=== PATIENT | male | born 1940 | race Caucasian/White ===

== ENCOUNTER 2023-04-18 06:23 | Day surgery (SDC) | payer MEDICARE, BC ==
[2023-04-18] VITALS (7 sets, daily range): BP systolic 102–158; BP diastolic 55–87; PULSE 39–90; RESP 14–16; TEMP 97.5; O2SAT 96–98
[~2023-04-18] VITALS: Ht 167.6 cm; Wt 87.2 kg
[~2023-04-18 06:23] MED LIST: ATOR40TA PO; CLOP75TA34 PO
[2023-04-18] MEDS ORDERED: TAMSULOSIN PO (06:46)
[2023-04-18] MEDS ORDERED: RIVA20TA PO (06:46)
[2023-04-18] MEDS ORDERED: EVOL140P3 SQ (06:46)
[2023-04-18] MEDS ORDERED: PANT40TA54 PO (06:48)
[2023-04-18] MEDS ORDERED: PRAV40TA3 PO (06:48)
[2023-04-18] MEDS ORDERED: AMIO200T27 PO (06:48)
[2023-04-18 07:25] LABS: APTT 27 SECONDS (22-32); PROTHROMBIN TIME 10.9 SECONDS (9.0-12.0)
[2023-04-18 07:34] LABS: BASOPHILS # (AUTO) 0.1 X10'3 (0-0.2); BASOPHILS % (AUTO) 0.8 % (0-1); EOSINOPHILS # (AUTO) 0.2 X10'3 (0-0.9); EOSINOPHILS % (AUTO) 3.2 % (0-6); HEMATOCRIT 41.6 % (42.0-52.0); HEMOGLOBIN 14.2 g/dl (14.0-17.9); LYMPHOCYTES # (AUTO) 0.9 X10'3 (1.1-4.8); LYMPHOCYTES % (AUTO) 14.5 % (21-51); MEAN CORPUSCULAR HEMOGLOBIN 32.4 PG (27.0-31.0); MEAN CORPUSCULAR VOLUME 95.1 FL (78-98); MEAN PLATELET VOLUME 7.2 FL (7.4-10.4); MONOCYTES # (AUTO) 0.6 X10'3 (0-0.9); MONOCYTES % (AUTO) 8.7 % (2-12); NEUTROPHILS # (AUTO) 4.7 X10'3 (1.8-7.7); NEUTROPHILS % (AUTO) 72.8 % (42-75); PLATELET COUNT 254 X10'3 (140-440); RED BLOOD COUNT 4.38 X10'6 (4.70-6.10); RED CELL DISTRIBUTION WIDTH 13.8 % (11.5-14.5); WHITE BLOOD COUNT 6.4 X10'3 (4.5-11.0)
[2023-04-18] MEDS ORDERED: midazolam 1 mg/ML 2ml injection ONE ×3 (07:37→09:28)
[2023-04-18] MEDS ORDERED: fentaNYL/PF 50MCG/1 ML 2ML syringe ONE ×2 (07:37→09:57)
[2023-04-18] MEDS ORDERED: iohexol 350 MG/ML 50ML vial IV ONE ×2 (07:37→09:25)
[2023-04-18] MEDS ORDERED: LIDOCAINE 2%/EPI 1:100,000 inj. Multi-dose 20 ML VIAL ONE (07:37)
[2023-04-18] MEDS ORDERED: vancomycin 1,000mg inj ONE (07:38)
[2023-04-18 08:26] LABS: ALBUMIN 3.5 G/DL (3.4-5.0); ANION GAP 11 (8-16); BLOOD UREA NITROGEN 14 MG/DL (7-18); BUN/CREATININE RATIO 14.4 (10.0-20.0); CALCIUM 8.9 MG/DL (8.5-10.1); CHLORIDE 103 MMOL/L (99-107); CREATININE 0.97 MG/DL (0.60-1.10); GLUCOSE 101 MG/DL (70-104); MAGNESIUM 2.1 MG/DL (1.5-2.4); POTASSIUM 4.3 MMOL/L (3.5-5.1); SODIUM 139 MMOL/L (135-145); TOTAL CARBON DIOXIDE 25.5 MMOL/L (24-32); eCRCL 55 ML/MIN; eGFR 74 ML/MIN
[2023-04-19] MEDS ORDERED: cefazolin 2gm/D5W 100mL 100 ML IV ONE (05:30)
[2023-04-19] MEDS ORDERED: normal saline 1000ml 1,000 ML IV SCH (05:30)
[2023-04-19] MEDS ORDERED: vancomycin/NS 1 GM in NS 250 ML IV ONE (05:30)
== END 2023-04-18 12:30 | disposition home or self-care (01) ==
LOC: SSTAY O 06:23
PROVIDERS: ATTEND Internal Medicine Cardiovascular Disease
DX: I49.5 Sick sinus syndrome (principal); I48.0 Paroxysmal atrial fibrillation; I25.10 Atherosclerotic heart disease of native coronary artery without angina pectoris; I25.2 Old myocardial infarction; E78.00 Pure hypercholesterolemia, unspecified; Z87.891 Personal history of nicotine dependence; Z79.899 Other long term (current) drug therapy; Z88.8 Allergy status to other drugs, medicaments and biological substances; Z95.5 Presence of coronary angioplasty implant and graft
CPT/HCPCS: 33208; 36415; 71045; 80048; 83735; 85025; 85610; 85730; 93005; 99152; 99153; C1785; C1898; J2250; J3010; J3370; J7030; Q9967; A4565

== ENCOUNTER 2023-08-27 11:03 | Emergency (ER) | payer MEDICARE, BC ==
[~2023-08-27] VITALS: Ht 167.6 cm; Wt 76.8 kg
[~2023-08-27 11:03] MED LIST changes: +AMIO200T27 PO; -ATOR40TA PO; -CLOP75TA34 PO; +EVOL140P3 SQ; +PANT40TA54 PO; +PRAV40TA3 PO; +RIVA20TA PO; +TAMSULOSIN PO
[2023-08-27 12:50] LABS: BILIRUBIN,URINE NEGATIVE (Neg); CLARITY,URINE CLEAR (Clear); COLOR,URINE YELLOW (Yellow); GLUCOSE, URINE NEGATIVE (Neg); KETONES,URINE NEGATIVE (Neg); LEUKOCYTE ESTERASE ,URINE NEGATIVE (Neg); NITRITES, URINE NEGATIVE (Neg); OCCULT BLOOD,URINE NEGATIVE (Neg); PROTEIN,URINE NEGATIVE (Neg); UROBILINOGEN,URINE 0.2 E.U/dL (0.2-1.0)
[2023-08-27 12:59] LABS: UA COLLECTION TYPE CLN CATCH MIDSTREAM
[2023-08-27 13:54] LABS: BASOPHILS % (AUTO) 0.6 % (0-1); EOSINOPHILS # (AUTO) 0.3 X10'3 (0-0.9); HEMATOCRIT 42.5 % (42.0-52.0); HEMOGLOBIN 14.2 g/dl (14.0-17.9); LYMPHOCYTES # (AUTO) 0.7 X10'3 (1.1-4.8); LYMPHOCYTES % (AUTO) 8.4 % (21-51); MEAN CORPUSCULAR HEMOGLOBIN 32.5 PG (27.0-31.0); MEAN CORPUSCULAR HGB CONC 33.5 g/dL (33.0-36.5); MEAN CORPUSCULAR VOLUME 96.8 FL (78-98); MEAN PLATELET VOLUME 7.1 FL (7.4-10.4); MONOCYTES # (AUTO) 0.6 X10'3 (0-0.9); MONOCYTES % (AUTO) 6.7 % (2-12); NEUTROPHILS % (AUTO) 81.3 % (42-75); PLATELET COUNT 253 X10'3 (140-440); RED BLOOD COUNT 4.39 X10'6 (4.70-6.10); RED CELL DISTRIBUTION WIDTH 13.8 % (11.5-14.5); WHITE BLOOD COUNT 8.7 X10'3 (4.5-11.0)
[2023-08-27 14:04] LABS: ALBUMIN 3.4 G/DL (3.4-5.0); ANION GAP 8 (8-16); BLOOD UREA NITROGEN 13 MG/DL (7-18); BUN/CREATININE RATIO 15.5 (10.0-20.0); CALCIUM 8.6 MG/DL (8.5-10.1); CHLORIDE 103 MMOL/L (99-107); CREATININE 0.84 MG/DL (0.60-1.10); GLUCOSE 118 MG/DL (70-104); POTASSIUM 3.9 MMOL/L (3.5-5.1); SODIUM 137 MMOL/L (135-145); TOTAL CARBON DIOXIDE 25.6 MMOL/L (24-32); eCRCL 63 ML/MIN; eGFR 88 ML/MIN
[2023-08-27] MEDS: normal saline 1000ML IV soln IVB ONE (14:20)
[2023-08-27] MEDS: morphine 4 MG/ML inj SYRINge IV ONE (14:20)
[2023-08-27] MEDS: ondansetron/PF 4mg/2ml inj IV ONE (14:20)
[2023-08-27 14:58] LABS: ALANINE AMINOTRANSFERASE 30 U/L (12-78); ALBUMIN 3.5 G/DL (3.4-5.0); ALBUMIN/GLOBULIN RATIO 0.9 (1.1-1.5); ALKALINE PHOSPHATASE 84 IU/L (46-116); ASPARTATE AMINO TRANSFERASE 28 U/L (10-37); BILIRUBIN,DIRECT 0.1 MG/DL (0-0.3); BILIRUBIN,TOTAL 0.4 MG/DL (0.1-1.0); LIPASE 34 U/L (16-77); TOTAL PROTEIN 7.5 G/DL (6.4-8.2)
[2023-08-27] MEDS ORDERED: ONDA4TAB12 PO (15:04)
[2023-08-27] MEDS: ketorolac tromethamine 15mg/ml inj. IV ONE (15:32)
[2023-08-27 15:36] VITALS: BP 146/84; PULSE 66; RESP 18; TEMP 97.6; O2SAT 95
== END 2023-08-27 15:59 | disposition home or self-care (01) ==
LOC: ER 11:03
DX: R10.31 Right lower quadrant pain (principal); Z79.899 Other long term (current) drug therapy
CPT/HCPCS: 36415; 71045; 74176; 80048; 80076; 81003; 83690; 84484; 85025; 96361; 96374; 96375; 99285; J1885; J2270; J2405; J7030

== ENCOUNTER 2023-08-29 08:11 | Emergency (ER) | payer MEDICARE, BC ==
[~2023-08-29] VITALS: Ht 167.6 cm; Wt 86.1 kg
[~2023-08-29 08:11] MED LIST changes: +ONDA4TAB12 PO
[2023-08-29 08:15] VITALS: BP 170/98; PULSE 68; RESP 18; TEMP 96.9; O2SAT 98
== END 2023-08-29 11:54 | disposition left against medical advice (07) ==
LOC: ER 08:12
DX: R10.9 Unspecified abdominal pain (principal); Z53.21 Procedure and treatment not carried out due to patient leaving prior to being seen by health care provider
CPT/HCPCS: 99281

== ENCOUNTER 2023-09-29 07:23 | Outpatient (CLI) | payer MEDICARE, BC ==
[~2023-09-29] VITALS: Ht 167.6 cm; Wt 83.9 kg
[2023-09-29] MEDS: albuterol 2.5 MG/3 ML nebule NEB ONE (08:27)
[2023-09-29 08:31] VITALS: PULSE 66; RESP 15; O2SAT 94
== END 2023-09-29 23:59 | disposition home or self-care (01) ==
LOC: RT 07:23
PROVIDERS: ATTEND Internal Medicine Cardiovascular Disease
DX: J44.9 Chronic obstructive pulmonary disease, unspecified (principal)
CPT/HCPCS: 85018; 94060; 94727; 94729; 94760